=== PATIENT | female | born 1980 | race Caucasian/White ===

== ENCOUNTER 2020-10-04 17:46 | Emergency (ER) | payer OTHER, SELFPAY ==
[2020-10-04 17:54] VITALS: BP 136/78; PULSE 66; RESP 16; TEMP 36.7; O2SAT 100
--- NOTE | 2020-10-04 18:09 | ED.SKABFB ---
HPI - Skin/Abscess/Foreign Bdy General Chief complaint: Skin/Abscess/Foreign Body Stated complaint: INSECT BITE Time Seen by Provider: 10/04/20 18:10 Source: patient and RN notes reviewed Mode of arrival: ambulatory Limitations: no limitations History of Present Illness HPI narrative: 39-year-old female presents to the [facility] with complaints of a bug bite to the right upper inner arm since last night. States that her significant other do a prairie band around the red area when she joao to bed and not the redness and swelling has become worse. Also has increased warmth. Denies fevers. Full range of motion of the shoulder elbow and wrist without increased pain. Related Data Home Medications Medication Instructions Recorded Confirmed levothyroxine 10/04/20 Allergies Allergy/AdvReac Type Severity Reaction Status Date / Time Penicillins Allergy Unknown Other Verified 01/16/18 18:49 Review of Systems Review of Systems: All systems reviewed & are unremarkable except as noted in HPI and below Constitutional: Constitutional: Reports no additional constitutional complaints Eyes: Eyes: Reports no additional eye complaints ENT: Reports system reviewed and no additional complaints, except as documented Cardiovascular: Cardiovascular: Reports no additional cardiovascular complaints Respiratory: Respiratory: Reports no additional respiratory complaints Musculoskeletal: Musculoskeletal: Reports no additional musculoskeletal complaints Integumentary/Breasts: Skin/Breast: Reports as per HPI and Reports erythema (Right upper arm) Neurologic: Reports system reviewed and no additional complaints, except as documented Psychiatric: Psychiatric: Reports no additional psychiatric complaints Allergic/Immunologic: Allergic/Immunologic: Reports no additional allergic/immunologic complaints PMFSH Surgical History Surgical History H/O thyroidectomy Comments At the time of my signature, I reviewed and agree with the nursing past medical, surgical, social, and family history. There is no relevant family history pertinent to the patient complaint. Exam Const: General: healthy appearing, no acute distress and alert Nutritional Appearance: well nourished Orientation/consciousness: patient oriented x3 Limitations: no limitations HENMT: Head: normal to inspection Ears: external ears normal Eyes: Conjunctivae: conjunctivae normal Pupils: Equal, round and reactive pupils present Neck: Neck: normal visual inspection, no lymphadenopathy and no meningeal signs Chest: Chest palpation & inspection: normal inspection of the chest Resp: Effort & Inspection: normal respiratory effort Auscultation: clear to auscultation bilaterally Cardio: Rate: regular rate Rhythm: regular rhythm : General: Yes no CVA tenderness Back/Spine/Pelvis: Back: no CVA tenderness Skin: General skin exam: no ecchymosis, erythema, no fluctuance and no induration Lesions: no lesions Rashes: no rashes Trauma: no lacerations or abrasions Other: 6x5 cm red swollen warm area Neuro: General: patient oriented x3, moves all extremities, no meningeal signs and no focal motor deficits Speech: normal speech Gait exam (Neuro): Normal gait present Extrem: General: normal to inspection and no pedal edema Psych: Appearance: grossly normal and well kempt Mental Status: mental status grossly normal Affect: normal affect Attitude: cooperative Thought content: Yes Normal thought content present Course Course Emergency Course: Discharge instructions reviewed with patient, as well as provided in writing per nursing staff. The instructions also include specific and strict return/GO TO THE ER as well as f/u information. All questions have been answered, and the patient deny any further questions with discharge and discharge plan. Vital Signs Vital signs: Vital Signs Temperature 98.1 F 10/04/20 17:54 Pulse Rate
== END 2020-10-04 18:20 | disposition home or self-care (01) ==
PROVIDERS: Emergency Provider Nurse Practitioner; PCP Family Medicine Sports Medicine
DX: L03.113 Cellulitis of right upper limb (principal)
CPT/HCPCS: 99213; G0463

== ENCOUNTER 2021-03-12 15:59 | Outpatient (CLI) | payer OTHER, SELFPAY ==
--- NOTE | ~2021-03-12 | US_ITS ---
US OB <=14 wk fetus w TV DATE: 03/12/2021 17:35 INDICATION: First trimester vaginal spotting TECHNIQUE: Real-time imaging via transabdominal and transvaginal approaches COMPARISON: None FINDINGS: Uterus measures 8.4 centers height, 4.8 cm AP and 6.2 cm transverse dimension. Intrauterine normally shaped gestational sac with normal appearing surrounding decidual reaction is i dentified. Yolk sac but not pole is detected. The ovaries appear normal. No pelvic mass or abnormal pelvic fluid collection is detected. IMPRESSION: Early intrauterine gestational sac Reviewed, dictated and finalized at [facility]. Reviewed, dictated and finalized at location [facility]. NT OFFICER
== END 2021-03-12 16:00 | disposition home or self-care (01) ==
LOC: ANHIMG 16:09
PROVIDERS: PCP Family Medicine Sports Medicine; Visit Provider Obstetrics & Gynecology Gynecology
DX: O26.851 Spotting complicating pregnancy, first trimester (principal); Z3A.00 Weeks of gestation of pregnancy not specified
CPT/HCPCS: 76801; 76817

== ENCOUNTER 2021-03-12 18:29 | Outpatient (CLI) | payer OTHER, SELFPAY | END 2021-03-12 18:30 | disposition home or self-care (01) | LOC: ANHOBOP 18:31 | PROVIDERS: PCP Family Medicine Sports Medicine; Visit Provider Obstetrics & Gynecology Gynecology | DX: O20.0 Threatened abortion (principal); Z3A.00 Weeks of gestation of pregnancy not specified | CPT/HCPCS: 36415; 84702; 85461 ==

== ENCOUNTER 2021-03-19 15:22 | Outpatient (RCR) | payer OTHER, SELFPAY ==
[2021-03-16] MEDS: RHO(D) IMMUNE GLOBULIN 300 MCG/2 ML SYRINGE IM (18:17)
[2021-03-19 16:14] LABS: Beta HCG Quantitative 214.72 mIU/ML
== END 2021-06-14 23:59 | disposition home or self-care (01) ==
LOC: ANHLAB 15:22
PROVIDERS: PCP Family Medicine Sports Medicine; Visit Provider Obstetrics & Gynecology Gynecology
DX: Z29.13 Encounter for prophylactic Rho(D) immune globulin (principal); O36.0110 Maternal care for anti-D [Rh] antibodies, first trimester, not applicable or unspecified; O26.851 Spotting complicating pregnancy, first trimester; O02.1 Missed abortion; Z3A.00 Weeks of gestation of pregnancy not specified
CPT/HCPCS: 36415; 84702; 85461; 90384; 96372; J2790

== ENCOUNTER → 2021-09-06 14:41 | Outpatient (CLI) | payer OTHER, SELFPAY ==
--- NOTE | ~2021-09-06 | US_ITS ---
EXAMINATION: US OB transvaginal DATE: 09/06/2021 15:05 INDICATION: Uncertain dates. Spotting in first trimester. TECHNIQUE: Real-time transvaginal pelvic ultrasound was performed. COMPARISON: None. FINDINGS: The uterus measures 9.0 x 5.1 x 6.4 cm. There is a 1.3 cm intramural fibroid. There is an intrauterin e gestational sac. A yolk sac is identified. The crown rump length measures 0.4 cm, which [place] elates with an estimated gestational age of 6 weeks and 0 day(s) (+/-) 4 day(s). heart motion i s identified measuring 107 beats per minute (bpm) by M-mode Doppler. The ovaries are not visualized. There is no free fluid in the pelvis. IMPRESSION: 1. Single living intrauterine gestation with estimated date of delivery of 05/02/2022. 2. 1.3 cm intramural fibroid. Reviewed, dictated and finalized at location [facility]. IMPRESSION: 1. Single living intrauterine gestation with estimated date of delivery of 04/17. 2. 1.3 cm intramural fibroid.
== END ==
PROVIDERS: PCP Family Medicine Sports Medicine; Visit Provider Obstetrics & Gynecology Gynecology
DX: O26.21 Pregnancy care for patient with recurrent pregnancy loss, first trimester (principal); Z3A.00 Weeks of gestation of pregnancy not specified
CPT/HCPCS: 76817

== ENCOUNTER → 2021-10-02 15:10 | Outpatient (CLI) | payer OTHER, SELFPAY ==
--- NOTE | ~2021-10-02 | US_ITS ---
EXAMINATION: US OB <= 14 weeks fetus DATE: 10/02/2021 15:34 INDICATION: Recurrent . TECHNIQUE: Real-time transabdominal pelvic ultrasound was performed. COMPARISON: Ultrasound 09/06/2021 FINDINGS: The uterus measures 13.7 x 6.0 x 8.5 cm. There is an intrauterine gestational sac. A yolk sac is iden tified. The crown rump length measures 3.5 cm, which correlates with an estimated gestational age of 10 weeks and 2 day(s) (+/-) 6 day(s). heart motion is identified measuring 167 beats per minute (bpm) by M-mode Doppler. There is a small subchorionic hematoma measuring 1.7 x 1.9 x 0.9 cm. On the left, there is an intramural fibroid measuring 1.7 cm. The right ovary measures 2.6 x 1.3 x 1 .8 cm. The left ovary measures 3.1 x 1.9 x 2.5 cm. There is no free fluid in the pelvis. IMPRESSION: 1. Single living intrauterine gestation with estimated date of delivery of 05/02/2022 based on the ul trasound from 09/06/2021. 2. Small subchorionic hematoma. 3. 1.7 cm uterine fibroid. Reviewed, dictated and finalized at location [facility]. IMPRESSION: 1. Single living intrauterine gestation with estimated date of delivery of 04/17 based on the ultrasound from 09/06/2021. 2. Small subchorionic hematoma. 3. 1.7 cm uterine fibroid.
== END ==
PROVIDERS: PCP Family Medicine Sports Medicine; Visit Provider Obstetrics & Gynecology Gynecology
DX: O46.90 Antepartum hemorrhage, unspecified, unspecified trimester (principal); Z3A.00 Weeks of gestation of pregnancy not specified; D25.9 Leiomyoma of uterus, unspecified
CPT/HCPCS: 76801

== ENCOUNTER → 2021-10-26 14:39 | Outpatient (CLI) | payer OTHER, SELFPAY ==
--- NOTE | ~2021-10-26 | US_ITS ---
EXAMINATION: US OB limited DATE: 10/26/2021 15:00 INDICATION: Subchorionic hematoma during the second trimester of TECHNIQUE: Real-time ultrasound of the pelvis was performed. The interpreting radiologist was not pre sent for the study. COMPARISON: 10/02/2021 FINDINGS: There is a single living fetus in transverse lie. The placenta is anterior. Again seen is approximat zeina 2.2 cm hypoechoic fibroid in the left posterior wall of the uterus. No subchorionic hematoma. Fet al heart rate is 147 beats per minute (bpm). The amniotic fluid volume is subjectively normal. IMPRESSION: 1. Single living fetus with heart rate of 147 bpm. 2. Normal anterior placenta. No evident subchorionic hematoma. 3. 2.2 cm intramural fibroid in the posterior wall of the uterus. Reviewed, dictated and finalized at location A.
== END ==
PROVIDERS: PCP Family Medicine Sports Medicine; Visit Provider Obstetrics & Gynecology Gynecology
DX: O36.8920 Maternal care for other specified fetal problems, second trimester, not applicable or unspecified (principal); D25.9 Leiomyoma of uterus, unspecified; Z3A.00 Weeks of gestation of pregnancy not specified
CPT/HCPCS: 76815

== ENCOUNTER 2021-11-12 16:30 | Outpatient (CLI) | payer OTHER, SELFPAY ==
[2021-11-12 16:50] LABS: Hematocrit 37.1 % (37.0-47.0); Hemoglobin 12.9 g/dL (12.0-15.0); Mean Corpuscular HGB Conc 34.8 g/dl (32-36); Mean Corpuscular Volume 94.9 fl (80-100); Mean Platelet Volume 10.1 fl (7.4-10.4); Platelet Count Result 209 k/mm3 (150-375); Red Blood Count 3.91 M/mm3 (4.2-5.4)
[2021-11-12 17:05] LABS: Alanine Aminotransferase 22 U/L (6-35); Albumin Level 3.8 g/dL (3.5-5.1); Alkaline Phosphatase 39 U/L (38-126); Anion Gap 7 mmol/L (8-16); Aspartate Amino Transferase 18 U/L (14-36); Bilirubin,Total 0.3 mg/dL (0.2-1.3); Blood Urea Nitrogen 9 mg/dL (7-17); Calcium 8.4 mg/dL (8.4-10.2); Carbon Dioxide 24 mmol/L (22-30); Chloride 105 mmol/L (98-107); Estimated Glomerular Filt Rate > 60; Glucose 103 mg/dL (65-110); Potassium 4.1 mmol/L (3.4-5.0); Sodium 136 mmol/L (137-145)
== END 2021-11-12 16:31 | disposition home or self-care (01) ==
LOC: ANHLAB 16:32
PROVIDERS: PCP Family Medicine Sports Medicine; Visit Provider Obstetrics & Gynecology Gynecology
DX: Z87.59 Personal history of other complications of pregnancy, childbirth and the puerperium (principal)
CPT/HCPCS: 36415; 80053; 85027

== ENCOUNTER 2021-11-15 15:52 | Outpatient (CLI) | payer OTHER, SELFPAY ==
[2021-11-15 18:21] LABS: Total Volume 24 Hour Urine 3300 ml
[2021-11-15 18:23] LABS: Total Volume 24 Hour Urine 3300 ml
[2021-11-15 18:40] LABS: Creatinine 24 Hour Urine 1.2 gm/24 (0.8-1.8); Creatinine Urine 37.4 mg/dL; Total Protein Urine 24 Hr 264 mg/24hr (28-141); Total Protein Urine Random 8 mg/dL
== END 2021-11-15 15:53 | disposition home or self-care (01) ==
PROVIDERS: PCP Family Medicine Sports Medicine; Visit Provider Obstetrics & Gynecology Gynecology
DX: Z87.59 Personal history of other complications of pregnancy, childbirth and the puerperium (principal)
CPT/HCPCS: 81050; 82570; 84156

== ENCOUNTER 2021-12-24 16:30 | Outpatient (CLI) | payer OTHER, SELFPAY ==
[2021-12-31 08:15] LABS: AFP, Serum 141.2; Estriol, Free 2.53; hCG MoM 1.63; hCG, Serum 28.8
[2021-12-31 08:16] LABS: Cigarette Smoker No; Inhibin A, Dimeric 331; Maternal Weight 154; Number of Fetuses 1
[2022-01-04 16:00] LABS: IVFPREG? No
== END 2021-12-24 16:31 | disposition home or self-care (01) ==
LOC: ANHLAB 16:33
PROVIDERS: PCP Family Medicine Sports Medicine; Visit Provider Obstetrics & Gynecology Gynecology
DX: Z36.9 Encounter for antenatal screening, unspecified (principal); Z3A.00 Weeks of gestation of pregnancy not specified
CPT/HCPCS: 36415; 82105; 82677; 84702; 86336

== ENCOUNTER 2022-02-01 15:24 | Outpatient (CLI) | payer OTHER, SELFPAY ==
[2022-02-01 16:02] LABS: Hematocrit 36.9 % (37.0-47.0); Hemoglobin 12.9 g/dL (12.0-15.0); Mean Corpuscular Volume 94.4 fl (80-100); Platelet Count Result 236 k/mm3 (150-375); Red Blood Count 3.91 M/mm3 (4.2-5.4); Red Cell Distribution Width 12.1 % (11.5-14.5); White Blood Count 8.7 K/mm3 (4.5-10.0)
[2022-02-01 16:13] LABS: Alanine Aminotransferase 30 U/L (6-35); Albumin Level 3.5 g/dL (3.5-5.1); Alkaline Phosphatase 77 U/L (38-126); Anion Gap 4 mmol/L (8-16); Aspartate Amino Transferase 27 U/L (14-36); Bilirubin,Total 0.2 mg/dL (0.2-1.3); Blood Urea Nitrogen 9 mg/dL (7-17); Calcium 8.6 mg/dL (8.4-10.2); Carbon Dioxide 26 mmol/L (22-30); Chloride 103 mmol/L (98-107); Estimated Glomerular Filt Rate > 60; Glucose 81 mg/dL (65-110); Potassium 4.3 mmol/L (3.4-5.0); Sodium 133 mmol/L (137-145); Uric Acid 3.6 mg/dL (2.5-7.5)
[2022-02-04 16:03] LABS: Total Volume 24 Hour Urine 3600 ml
[2022-02-04 16:09] LABS: Total Protein Urine Random 14 mg/dL
[2022-02-04 16:19] LABS: Total Protein Urine 24 Hr 504 mg/24hr (28-141)
== END 2022-02-01 15:25 | disposition home or self-care (01) ==
LOC: ANHLAB 15:26
PROVIDERS: PCP Family Medicine Sports Medicine; Visit Provider Obstetrics & Gynecology Gynecology
DX: O13.2 Gestational [pregnancy-induced] hypertension without significant proteinuria, second trimester (principal); Z3A.00 Weeks of gestation of pregnancy not specified
CPT/HCPCS: 36415; 80053; 81050; 84156; 84550; 85027

== ENCOUNTER 2022-02-05 14:12 | Inpatient (IN) | payer OTHER, SELFPAY ==
[2022-02-05] VITALS (7 sets, daily range): BP systolic 126–148; BP diastolic 74–86; PULSE 56–67; RESP 18; TEMP 36.6–36.8; O2SAT 93–98; BMI 33.0
[2022-02-05] MEDS: BETAMETHASONE SOD PHOS/ACETATE 30 MG/5 ML VIAL 12 MG IM (15:01)
[2022-02-05 15:20] LABS: Basophils Percent Auto 0.3 % (0.2-1.2); Eosinophils Absolute Auto 0.1 K/mm3 (0-0.3); Hematocrit 35.8 % (37.0-47.0); Hemoglobin 12.5 g/dL (12.0-15.0); Immature Granulocyte Absolute 0.02 K/mm3 (0.00-0.031); Immature Granulocyte Percent A 0.3 % (0-0.5); Lymphocytes Absolute Auto 1.69 K/mm3 (0.9-3.2); Lymphocytes Percent Auto 24.9 % (18.3-44.2); Mean Corpuscular HGB Conc 34.9 g/dl (32-36); Mean Corpuscular Volume 94.5 fl (80-100); Mean Platelet Volume 10.9 fl (7.4-10.4); Monocytes Absolute Auto 0.5 K/mm3 (0.1-0.6); Monocytes Percent Auto 7.2 % (2.6-8.5); Neutrophils Absolute Auto 4.5 K/mm3 (1.3-6.7); Neutrophils Percent Auto 66.3 % (45.5-73.1); Platelet Count Result 227 k/mm3 (150-375); Red Blood Count 3.79 M/mm3 (4.2-5.4); White Blood Count 6.8 K/mm3 (4.5-10.0)
[2022-02-05 15:30] LABS: Alanine Aminotransferase 29 U/L (6-35); Albumin Level 3.6 g/dL (3.5-5.1); Alkaline Phosphatase 82 U/L (38-126); Anion Gap 7 mmol/L (8-16); Aspartate Amino Transferase 27 U/L (14-36); Bilirubin,Total < 0.1 mg/dL (0.2-1.3); Blood Urea Nitrogen 8 mg/dL (7-17); Calcium 8.7 mg/dL (8.4-10.2); Carbon Dioxide 21 mmol/L (22-30); Chloride 104 mmol/L (98-107); Estimated Glomerular Filt Rate > 60; Glucose 91 mg/dL (65-110); Potassium 3.8 mmol/L (3.4-5.0); Sodium 132 mmol/L (137-145); Uric Acid 3.9 mg/dL (2.5-7.5)
--- NOTE | 2022-02-05 15:30 | OBADM ---
This patient, Kelli Galdamez, admitted to the OB room OB Post 113 for observation. Patient/family oriented to hospital policies and general routines including ID bracelet, bed and alarms, visiting hours, pain management, procedures, bathroom and other care routines, personal items, smoking policy, room service/diet, and visiting hours. Patient/Family are encouraged to report perceived risks to care and to ask questions if they do not understand what they are told or what they should do.
--- NOTE | 2022-02-05 17:39 | PC.NURSE ---
Report given to Spencer Henderson
[2022-02-05 19:38] LABS: Hematocrit 36.6 % (37.0-47.0); Hemoglobin 12.7 g/dL (12.0-15.0); Mean Corpuscular HGB Conc 34.7 g/dl (32-36); Mean Corpuscular Hemoglobin 32.9 pg (26-34); Mean Corpuscular Volume 94.8 fl (80-100); Mean Platelet Volume 10.6 fl (7.4-10.4); Platelet Count Result 225 k/mm3 (150-375); Red Blood Count 3.86 M/mm3 (4.2-5.4); Red Cell Distribution Width 12.2 % (11.5-14.5); White Blood Count 8.7 K/mm3 (4.5-10.0)
[2022-02-05 19:58] LABS: Glucose 1 Hour PP 50gm Dose 222 mg/dL
[2022-02-05 20:30] LABS: Vitamin D 25 Hydroxy 52.3 ng/mL
[2022-02-05 20:37] LABS: HIV 1/2 Ab P24 Ag Result Negative (Negative)
[2022-02-06] VITALS (9 sets, daily range): BP systolic 123–143; BP diastolic 68–80; PULSE 57–66; RESP 14–18; TEMP 36.6–36.9; O2SAT 95
[2022-02-06 06:32] LABS: Glucose Point of Care 127 mg/dl (65-105)
--- NOTE | 2022-02-06 08:10 | PM.OBPNVD ---
OB - PN: Subj Subjective Date/time seen: 02/06/22 0735 Interval history: Kelli reports not sleeping well last night but otherwise has no complaints. Patient comments: no complaints OB - PN: Obj Data Labs 02/05/22 19:27 02/05/22 15:13 Labs: Laboratory Results - last 24 hr 02/05/22 02/05/22 02/05/22 15:13 15:13 15:13 WBC 6.8 RBC 3.79 L Hgb 12.5 Hct 35.8 L MCV 94.5 MCH 33.0 MCHC 34.9 RDW 12.0 Plt Count 227 MPV 10.9 H Immature Gran % (Auto) 0.3 Neut % (Auto) 66.3 Lymph % (Auto) 24.9 [place] % (Auto) 7.2 Eos % (Auto) 1.0 Baso % (Auto) 0.3 Lymph # (Auto) 1.69 [place] # (Auto) 0.5 Eos # (Auto) 0.1 Baso # (Auto) 0.0 Abs Immat Gran (auto) 0.02 Absolute Neuts (auto) 4.5 Absolute Nucleated RBC 0.0 Nucleated RBC % 0.0 Sodium 132 L Potassium 3.8 Chloride 104 Carbon Dioxide 21 L Anion Gap 7 L BUN 8 Creatinine 0.50 L Estim Creat Clear Calc Not Reportable Estimated GFR > 60 Glucose 91 POC Capillary Glucose Glucose 1 Hr 50 gm Uric Acid Cancelled 3.9 Calcium 8.7 Total Bilirubin < 0.1 L AST 27 ALT 29 Alkaline Phosphatase 82 Total Protein 7.0 Albumin 3.6 Vitamin D 25-Hydroxy HIV 1&2 Ab/P24 Ag 4thGn Blood Type Antibody Screen Screen Baby's Blood Type Baby's SOBEIDA Doses of RhIg Required 02/05/22 02/05/22 02/05/22 19:27 19:27 19:27 WBC 8.7 RBC 3.86 L Hgb 12.7 Hct 36.6 L MCV 94.8 MCH 32.9 MCHC 34.7 RDW 12.2 Plt Count 225 MPV 10.6 H Immature Gran % (Auto) Neut % (Auto) Lymph % (Auto) [place] % (Auto) Eos % (Auto) Baso % (Auto) Lymph # (Auto) [place] # (Auto) Eos # (Auto) Baso # (Auto) Abs Immat Gran (auto) Absolute Neuts (auto) Absolute Nucleated RBC Nucleated RBC % Sodium Potassium Chloride Carbon Dioxide Anion Gap BUN Creatinine Estim Creat Clear Calc Estimated GFR Glucose POC Capillary Glucose Glucose 1 Hr 50 gm Uric Acid Calcium Total Bilirubin AST ALT Alkaline Phosphatase Total Protein Albumin Vitamin D 25-Hydroxy 52.3 HIV 1&2 Ab/P24 Ag 4thGn Negative Blood Type Antibody Screen Screen Baby's Blood Type Baby's SOBEIDA Doses of RhIg Required 02/05/22 02/05/22 02/06/22 19:27 19:27 06:25 WBC RBC Hgb Hct MCV MCH MCHC RDW Plt Count MPV Immature Gran % (Auto) Neut % (Auto) Lymph % (Auto) [place] % (Auto) Eos % (Auto) Baso % (Auto) Lymph # (Auto) [place] # (Auto) Eos # (Auto) Baso # (Auto) Abs Immat Gran (auto) Absolute Neuts (auto) Absolute Nucleated RBC Nucleated RBC % Sodium Potassium Chloride Carbon Dioxide Anion Gap BUN Creatinine Estim Creat Clear Calc Estimated GFR Glucose POC Capillary Glucose 127 H Glucose 1 Hr 50 gm 222 H Uric Acid Calcium Total Bilirubin AST ALT Alkaline Phosphatase Total Protein Albumin Vitamin D 25-Hydroxy HIV 1&2 Ab/P24 Ag 4thGn Blood Type A Negative Antibody Screen Negative Screen Negative Baby's Blood Type Not Reportable Baby's SOBEIDA Not Reportable Doses of RhIg Required 1 OB - PN A/P Assessment and Plan (1) Preeclampsia: Code(s): O14.90 - Unspecified pre-eclampsia, unspecified trimester Status: Acute (2) History of pre-eclampsia in prior , currently : Code(s): O09.299 - Supervision of with other poor reproductive or obstetric history, unspecified trimester Status: Acute (3) History of IUFD: Code(s): Z87.59 - Personal history of other complications of , childbirth and the puerperium Status: Acute (4) Rh negative status during : Code(s
--- NOTE | 2022-02-06 10:00 | PC.NURSE ---
Izaiah Teran CNM upated on pt. Orders for NST at [id number]-[id number]. Blood sugar per D-Stick reported.
[2022-02-06 10:26] LABS: Glucose Point of Care 195 mg/dl (65-105)
[2022-02-06 12:41] LABS: Free T4 Free Thyroxine 0.96 ng/mL (0.78-2.19)
[2022-02-06] MEDS: LEVOTHYROXINE SODIUM 100 MCG TABLET PO (13:38)
[2022-02-06] MEDS: RHO(D) IMMUNE GLOBULIN 300 MCG/2 ML SYRINGE IM (15:00)
[2022-02-06] MEDS: BETAMETHASONE SOD PHOS/ACETATE 30 MG/5 ML VIAL 12 MG IM (15:06)
[2022-02-06 15:12] LABS: Glucose Point of Care 196 mg/dl (65-105)
[2022-02-06 20:22] LABS: Glucose Point of Care 216 mg/dl (65-105)
[2022-02-07] VITALS (13 sets, daily range): BP systolic 125–141; BP diastolic 61–73; PULSE 59–70; RESP 16; TEMP 36.6–36.7; O2SAT 95–98; BMI 33.0
[2022-02-07 05:49] LABS: Glucose Point of Care 149 mg/dl (65-105)
[2022-02-07] MEDS: LEVOTHYROXINE SODIUM 100 MCG TABLET PO (07:36)
--- NOTE | 2022-02-07 07:37 | PM.OBPNVD ---
OB - PN: Subj Subjective Date/time seen: 02/07/22 07:37 Interval history: Kelli reports not sleeping well last night but otherwise has no complaints. Patient comments: no complaints and other (No PIH sx. Good FM) OB - PN: Obj Data Labs 02/05/22 19:27 02/05/22 15:13 Labs: Laboratory Results - last 24 hr 02/05/22 02/05/22 02/05/22 15:12 19:23 19:27 POC Capillary Glucose TSH 3.850 Free T4 0.96 Blood Type A Negative Antibody Screen Negative Screen Negative Doses of RhIg Required 1 02/06/22 02/06/22 02/06/22 09:43 15:05 20:18 POC Capillary Glucose 195 H 196 H 216 H TSH Free T4 Blood Type Antibody Screen Screen Doses of RhIg Required 02/07/22 05:44 POC Capillary Glucose 149 H TSH Free T4 Blood Type Antibody Screen Screen Doses of RhIg Required OB - PN A/P Assessment and Plan (1) Preeclampsia: Code(s): O14.90 - Unspecified pre-eclampsia, unspecified trimester Status: Acute Assessment and Plan: DC home on modified bedrest with close monitoring. BP at home and weekly visits. (2) History of IUFD: Code(s): Z87.59 - Personal history of other complications of , childbirth and the puerperium Status: Acute Assessment and Plan: NST Mon/Fri with SAIMA, Dopplers, BPP. Growth scan today with [facility]. (3) Gestational diabetes mellitus (GDM): Code(s): O24.419 - Gestational diabetes mellitus in , unspecified control Status: Acute Assessment and Plan: Likely elevated with steroids but will check accuchecks at home. Time Spent With Patient Time: Total time spent is greater than 50% in coordination of care (as documented) at patient's floor/unit and/or counseling patient: Exam Narrative: abdomen soft, nt NST Cat I
--- NOTE | 2022-02-07 07:40 | PM.DS ---
DS: Admitting Diagnosis Discharge Date 02/07/22 Admitting Diagnosis IUP 29 4/7 wks preeclampsia DS: Discharge Diagnosis Discharge Diagnosis (1) 29 weeks gestation of : Code(s): Z3A.29 - 29 weeks gestation of Status: Acute (2) Preeclampsia: Code(s): O14.90 - Unspecified pre-eclampsia, unspecified trimester Status: Acute (3) History of IUFD: Code(s): Z87.59 - Personal history of other complications of , childbirth and the puerperium Status: Acute (4) Gestational diabetes mellitus (GDM): Code(s): O24.419 - Gestational diabetes mellitus in , unspecified control Status: Acute Assessment and Plan: vs steroid effect DS: Summary Hospital Course Hospital Course: The patient was admitted secondary to [facility] recommendation to rule out severe features of her preeclampsia. She has been observed for 48hours with mild range blood pressures, normal labs, and good heart rate tracings. Patient is without preeclamptic symptoms. In addition the patient did her 3rd trimester labs of [id number] after her steroid dose and her 1hour glucose was 220. She will monitor sugars for the next couple weeks to see the steroids were the only cause or if she truly has gestational diabetes. Status at Discharge Functional status at discharge: independent ambulation Overall status at discharge: patient is back to baseline Time Spent with Patient Time attestation: Total time spent providing and/or coordinating discharge services: DS: Data Data Completed and Pending Labs on day of discharge: Labs from last 24 hours 02/07/22 02/06/22 02/06/22 05:44 20:18 15:05 POC Capillary Glucose 149 H 216 H 196 H TSH Free T4 Blood Type Antibody Screen Screen Doses of RhIg Required 02/06/22 02/05/22 02/05/22 09:43 19:27 19:23 POC Capillary Glucose 195 H TSH Free T4 0.96 Blood Type A Negative Antibody Screen Negative Screen Negative Doses of RhIg Required 1 02/05/22 15:12 POC Capillary Glucose TSH 3.850 Free T4 Blood Type Antibody Screen Screen Doses of RhIg Required Discharge Plan Discharge Attending physician on discharge: Emma Galaviz Discharging Clinician: Emma Galaviz Anticipated Discharge Date/Time: 02/07/22 07:43 Patient Disposition: Home, Self-Care Activity: may shower, pelvic rest and other - see discharge instructions Diet: gestational diabetic Patient Instructions: Antibiotic Form Stand Alone Forms: General Discharge Information Follow-up/Referrals: Emma Galaviz MD [Physician] - Keep Reg. Scheduled Appt. Discharge Medications: Continued levothyroxine 88 mcg tablet 100 mcg PO DAILY Rx Instructions: Only take 50 mcg on Sundays Classic 28 mg iron- 800 mcg Tablet 1 tablet PO DAILY Alive Calcium-Vitamin D3 260 mg calcium- 25 mcg-50 mg Tablet,Chewable 1 tablet PO DAILY Adult Low Dose Aspirin 81 mg Tablet 162 mg PO DAILY Date of admission: 02/05/22 14:12 Primary Care Provider: Doni,María Bliss Admitting Provider: Emma Galaviz Attending physician on admission: Emma Galaviz Condition: Stable
--- NOTE | 2022-02-07 10:43 | PC.NURSE ---
Pt waiting for to come get her for MFM appointment.
[2022-02-07 11:26] LABS: Glucose Point of Care 130 mg/dl (65-105)
== END 2022-02-07 11:42 | disposition home or self-care (01) | DRG 832 ==
PROVIDERS: Advanced Practice Midwife; Admitting Provider Obstetrics & Gynecology Gynecology; PCP Family Medicine Sports Medicine; Visit Provider Obstetrics & Gynecology Gynecology
DX: O24.419 Gestational diabetes mellitus in pregnancy, unspecified control (principal); O14.03 Mild to moderate pre-eclampsia, third trimester; Z3A.29 29 weeks gestation of pregnancy; Z67.91 Unspecified blood type, Rh negative; E05.00 Thyrotoxicosis with diffuse goiter without thyrotoxic crisis or storm; O09.523 Supervision of elderly multigravida, third trimester; O34.03 Maternal care for unspecified congenital malformation of uterus, third trimester; Q51.810 Arcuate uterus; Z90.89 Acquired absence of other organs; T38.0X5A Adverse effect of glucocorticoids and synthetic analogues, initial encounter
CPT/HCPCS: 36415; 59025; 80053; 82306; 82947; 82948; 84439; 84443; 84550; 85025; 85027; 85461; 86703; 86850; 86900; 86901; 90384; A9270; G0432; J0702; J2790

== ENCOUNTER 2022-02-09 14:02 | Outpatient (RCR) | payer OTHER, SELFPAY ==
[2022-02-09 14:38] VITALS: BP 141/85; PULSE 54
== END 2022-03-22 12:48 | disposition home or self-care (01) ==
LOC: ANHOBOP 14:02
PROVIDERS: PCP Family Medicine Sports Medicine; Visit Provider Obstetrics & Gynecology Gynecology
DX: O14.93 Unspecified pre-eclampsia, third trimester (principal); Z3A.28 28 weeks gestation of pregnancy
CPT/HCPCS: 59025

== ENCOUNTER 2022-02-11 04:13 | Observation (INO) | payer OTHER, SELFPAY ==
[2022-02-11] VITALS (59 sets, daily range): BP systolic 80–176; BP diastolic 42–92; PULSE 52–86; O2SAT 89–100; BMI 32.3
[2022-02-11] MEDS: NIFEdipine 10 MG CAPSULE PO (04:29)
[2022-02-11] MEDS: MAGNESIUM SULF 20GM/WATER500ML 500 ML 50 MG IV CONT (04:39)
[2022-02-11] MEDS: MAGNESIUM SULF 6 GM/WATER150ML 6 GM/150 ML BAG IVPB (04:39)
[2022-02-11] MEDS: LACTATED RINGERS 1,000 ML 50 ML (04:39)
[2022-02-11 04:51] LABS: Add Urine Microscopic? YES; Appearance Urine Clear (Clear); Bilirubin Urine Negative (Negative); Blood Urine Negative (Negative); Color Urine Light Yellow (Yellow); Glucose Urine UA Negative (Negative); Ketones Urine Negative (Negative); Leukocyte Esterase Ur Negative LEU/UL (NEGATIVE); Nitrate Urine Negative (Negative); Protein Urine Trace mg/dL (Negative); Urobilinogen Urine 0.2 mg/dL (<2.0); pH Urine 6.5 (5.0-9.0)
[2022-02-11 04:53] LABS: Creatinine Urine 18.9 mg/dL; Total Protein Urine Random 46 mg/dL; Ur Ttl Prot Creatinine Ratio 2.43 mg/mg (0-0.20)
[2022-02-11 04:56] LABS: Bacteria Urine Trace /hpf; RBC Urine 0-2 /hpf (0-2); Squamous Epithelial Cell Urine Few /hpf (Few); WBC Urine 0-3 /hpf (0-3)
[2022-02-11 05:00] LABS: Alanine Aminotransferase 38 U/L (6-35); Albumin Level 3.2 g/dL (3.5-5.1); Alkaline Phosphatase 79 U/L (38-126); Anion Gap 6 mmol/L (8-16); Aspartate Amino Transferase 28 U/L (14-36); Bilirubin,Total 0.2 mg/dL (0.2-1.3); Blood Urea Nitrogen 12 mg/dL (7-17); Calcium 8.2 mg/dL (8.4-10.2); Carbon Dioxide 19 mmol/L (22-30); Chloride 110 mmol/L (98-107); Estimated CRCL calculation 97 ml/min; Estimated Glomerular Filt Rate > 60; Glucose 90 mg/dL (65-110); Potassium 3.9 mmol/L (3.4-5.0); Sodium 135 mmol/L (137-145); Uric Acid 4.1 mg/dL (2.5-7.5)
--- NOTE | 2022-02-11 05:29 | PM.IMHP ---
H&P: HPI History of Present Illness Date/Time: 02/11/22 05:29 Chief Complaint: Elevated blood pressures Narrative: Kelli is a 41yo @ 28.3wks (ARIANNA 05/03/[birth year]) who presented to L&D for elevated blood pressures. She had severe range BPs at home (SBPs of 160-170s), (she is normally awake as she works nights). On arrival to L&D, she was found to have severe ranges >15 minutes apart requiring PO Procardia until IV access could be established. She was then started on magnesium sulfate for seizure ppx. She denies any symptoms of BAPTISTE, vision changes, RUQ pain, CP or SOB. She was recently admitted for BP monitoring and 24 hour urine protein on 02/06-02/07 which showed mild range BPs and 24 hour urine of >500. She has already established care with [facility]. She reports good movement currently. No VB, LOF, or contractions. 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, on levothyroxine - Obesity Review of Systems Constitutional: Constitutional: Denies chills and Denies fever(s) Eyes: Eyes: Denies change in vision Cardiovascular: Cardiovascular: Denies chest pain Respiratory: Respiratory: Denies cough and Denies dyspnea Gastrointestinal: Gastrointestinal: Denies abdominal pain Genitourinary: Genitourinary: Denies pelvic pain Neurologic: Denies headache(s) [facility] Surgical History Surgical History H/O thyroidectomy Meds Home Medications and Allergies Home Medications Medication Instructions Recorded Confirmed Type levothyroxine 88 mcg tablet 100 mcg PO DAILY 10/04/20 02/11/22 History aspirin 81 mg tablet 162 mg PO DAILY 02/05/22 02/11/22 History calcium phos,tribasic 260 mg-D3 25 1 tablet PO DAILY 02/05/22 02/11/22 History mcg-herbal 50 mg chewable tablet (Alive Calcium-Vitamin D3) vits no.126-ferrous fum 1 tablet PO DAILY 02/05/22 02/11/22 History 28 mg iron-folic acid 800 mcg tablet (Classic ) Allergies Allergy/AdvReac Type Severity Reaction Status Date / Time Penicillins Allergy Unknown Other Verified 02/05/22 15:05 adhesive AdvReac Rash Verified 02/05/22 15:06 Vital Signs Vital Signs - 24 hr 02/11/22 03:58 02/11/22 04:02 02/11/22 04:20 Pulse Rate 53 L 52 L 59 L Blood Pressure 175/83 H 168/91 H 176/92 H Pulse Oximetry 02/11/22 04:38 02/11/22 04:45 02/11/22 04:49 Pulse Rate 53 L 74 Blood Pressure 167/84 H 121/74 Pulse Oximetry 96 02/11/22 04:54 02/11/22 04:59 02/11/22 05:00 Pulse Rate 57 L Blood Pressure 80/42 L Pulse Oximetry 96 99 02/11/22 05:04 02/11/22 05:09 02/11/22 05:10 Pulse Rate 77 Blood Pressure 117/65 Pulse Oximetry 95 97 02/11/22 05:15 02/11/22 05:20 02/11/22 05:25 Pulse Rate Blood Pressure Pulse Oximetry 93 95 92 Exam Const: General: cooperative and ill appearing Resp: Effort & Inspection: normal respiratory effort Auscultation: clear to auscultation bilaterally Cardio: Rate: regular rate GI: Inspection: normal to inspection GI Palp: No abdominal tenderness and Yes Soft to palpation Auscultation: normal bowel sounds : Other: FHT's: 140's/ mod sulema/ + accels/ no decels - cat 1 TOCO: no ctx's No VB or LOF Skin: General skin exam: normal color Neuro: General: patient oriented x3 Extrem: General: normal to inspection Psych: Appearance: grossly normal Affect: normal affect Attitude: cooperative H&P: Results Labs Labs: [facility] 02/11/22 04:35 Sodium 135 L Potassium 3.9 Chloride 110 H Carbon Dioxide 19 L BUN 12 Creatinine 0.60 L Glucose 90 Calcium 8.2 L Liver Function 02/11/22 Range/Units 04:35 Total Bilirubin 0.2 (0.2-1.3) mg/dL AST 28 (14-36) U/L ALT 38 H (6-
--- NOTE | 2022-02-11 05:48 | OBADM ---
This patient, Kelli Galdamez, admitted to the OB room OB Post 117 for observation. Patient/family oriented to hospital policies and general routines including ID bracelet, bed and alarms, visiting hours, pain management, procedures, bathroom and other care routines, personal items, smoking policy, room service/diet, and visiting hours. Patient/Family are encouraged to report perceived risks to care and to ask questions if they do not understand what they are told or what they should do.
[2022-02-11 06:02] LABS: Basophils Percent Auto 0.3 % (0.2-1.2); Eosinophils Absolute Auto 0.1 K/mm3 (0-0.3); Eosinophils Percent Auto 0.4 % (0-4.4); Hematocrit 36.1 % (37.0-47.0); Hemoglobin 12.7 g/dL (12.0-15.0); Immature Granulocyte Absolute 0.06 K/mm3 (0.00-0.031); Immature Granulocyte Percent A 0.4 % (0-0.5); Lymphocytes Absolute Auto 3.15 K/mm3 (0.9-3.2); Lymphocytes Percent Auto 23.6 % (18.3-44.2); Mean Corpuscular HGB Conc 35.2 g/dl (32-36); Mean Corpuscular Hemoglobin 32.9 pg (26-34); Mean Corpuscular Volume 93.5 fl (80-100); Mean Platelet Volume 11.4 fl (7.4-10.4); Monocytes Percent Auto 7.4 % (2.6-8.5); Neutrophils Absolute Auto 9.1 K/mm3 (1.3-6.7); Neutrophils Percent Auto 67.9 % (45.5-73.1); Platelet Count Result 214 k/mm3 (150-375); Red Blood Count 3.86 M/mm3 (4.2-5.4); Red Cell Distribution Width 12.1 % (11.5-14.5); White Blood Count 13.4 K/mm3 (4.5-10.0)
--- NOTE | 2022-02-11 06:36 | WPDHPUPDATE1 ---
History and Physical Update Update Date/Time: 02/11/22 06:36 History and Physical has been reviewed, including an updated exam of the patient. There are NO changes in the patient's condition. Risks, benefits, and alternatives have been discussed and questions answered. Patient agrees to proceed with procedure.
--- NOTE | 2022-02-11 08:17 | PC.NURSE ---
07[address] Ma[address] MULLIGAN [facility] transport team here and assumed care of this patient.
--- NOTE | 2022-02-14 10:10 | PM.OBTRLD ---
OB - Triage/Final Diagnosis Visit Information Comments/Additional reasons for admission: I have assessed the risk for this patient, Kelli Galdamez, and determined that she would benefit from observation care. Evaluation Laboratory results: Laboratory Tests 02/11/22 02/11/22 02/11/22 04:35 04:37 04:37 WBC RBC Hgb Hct MCV MCH MCHC RDW Plt Count MPV Immature Gran % (Auto) Neut % (Auto) Lymph % (Auto) [place] % (Auto) Eos % (Auto) Baso % (Auto) Lymph # (Auto) [place] # (Auto) Eos # (Auto) Baso # (Auto) Abs Immat Gran (auto) Absolute Neuts (auto) Absolute Nucleated RBC Nucleated RBC % Sodium 135 L Potassium 3.9 Chloride 110 H Carbon Dioxide 19 L Anion Gap 6 L BUN 12 Creatinine 0.60 L Estim Creat Clear Calc 97 Estimated GFR > 60 Glucose 90 Uric Acid 4.1 Calcium 8.2 L Total Bilirubin 0.2 AST 28 ALT 38 H Alkaline Phosphatase 79 Total Protein 6.0 L Albumin 3.2 L Urine Color Light yellow Urine Appearance Clear Urine pH 6.5 Ur Specific [place] 1.010 Urine Protein Trace Urine Glucose (UA) Negative Urine Ketones Negative Ur Blood (Man) Negative Urine Nitrate Negative Urine Bilirubin Negative Urine Urobilinogen 0.2 Ur Leukocyte Esterase Negative Urine RBC 0-2 Urine WBC 0-3 Ur Squamous Epith Cells Few Urine Bacteria Trace U Random Total Protein 46 Urine Creatinine 18.9 Protein/Creat Ratio 2 2.43 H 02/11/22 05:24 WBC 13.4 H RBC 3.86 L Hgb 12.7 Hct 36.1 L MCV 93.5 MCH 32.9 MCHC 35.2 RDW 12.1 Plt Count 214 MPV 11.4 H Immature Gran % (Auto) 0.4 Neut % (Auto) 67.9 Lymph % (Auto) 23.6 [place] % (Auto) 7.4 Eos % (Auto) 0.4 Baso % (Auto) 0.3 Lymph # (Auto) 3.15 [place] # (Auto) 1.0 H Eos # (Auto) 0.1 Baso # (Auto) 0.0 Abs Immat Gran (auto) 0.06 H Absolute Neuts (auto) 9.1 H Absolute Nucleated RBC 0.0 Nucleated RBC % 0.0 Sodium Potassium Chloride Carbon Dioxide Anion Gap BUN Creatinine Estim Creat Clear Calc Estimated GFR Glucose Uric Acid Calcium Total Bilirubin AST ALT Alkaline Phosphatase Total Protein Albumin Urine Color Urine Appearance Urine pH Ur Specific [place] Urine Protein Urine Glucose (UA) Urine Ketones Ur Blood (Man) Urine Nitrate Urine Bilirubin Urine Urobilinogen Ur Leukocyte Esterase Urine RBC Urine WBC Ur Squamous Epith Cells Urine Bacteria U Random Total Protein Urine Creatinine Protein/Creat Ratio 2 Final Diagnosis (1) Preeclampsia: Qualifiers: Trimester: third trimester Qualified Code(s): O14.93 - Unspecified pre-eclampsia, third trimester Code(s): O14.90 - Unspecified pre-eclampsia, unspecified trimester Status: Acute (2) History of IUFD: Code(s): Z87.59 - Personal history of other complications of , childbirth and the puerperium Status: Acute (3) Rh negative status during : Qualifiers: Trimester: third trimester Qualified Code(s): O26.893 - Other specified related conditions, third trimester; Z67.91 - Unspecified blood type, Rh negative Code(s): O26.899 - Other specified related conditions, unspecified trimester; Z67.91 - Unspecified blood type, Rh negative Status: Acute (4) Graves disease: Code(s): E05.00 - Thyrotoxicosis with diffuse goiter without thyrotoxic crisis or storm Status: Acute (5) Advanced maternal age (AMA) in : Status: Acute (6) Gestational diabetes mellitus (GDM): Qualifiers: Gestational diabetes mellitus control: unspecified Trimester: third trimester Qualified Code(s): O24.419 - Gestational diabetes mellitus in , unspecified control Code(s): O24.419 - Gestational diabetes mellitus in , unspecified control Status: Acute
== END 2022-02-11 08:17 | disposition short-term general hospital (02) ==
LOC: ANHOBOP 05:02 → ANHOBPP 08:26
PROVIDERS: Admitting Provider Obstetrics & Gynecology; PCP Family Medicine Sports Medicine; Visit Provider Obstetrics & Gynecology
DX: O14.93 Unspecified pre-eclampsia, third trimester (principal); Z87.59 Personal history of other complications of pregnancy, childbirth and the puerperium; O36.0930 Maternal care for other rhesus isoimmunization, third trimester, not applicable or unspecified; O24.419 Gestational diabetes mellitus in pregnancy, unspecified control; O09.523 Supervision of elderly multigravida, third trimester; O26.899 Other specified pregnancy related conditions, unspecified trimester; E05.00 Thyrotoxicosis with diffuse goiter without thyrotoxic crisis or storm; Z3A.28 28 weeks gestation of pregnancy; Z79.82 Long term (current) use of aspirin; Z79.899 Other long term (current) drug therapy
CPT/HCPCS: 36415; 80053; 81001; 82570; 84156; 84550; 85025; 87086; 87088; 96365; 96366; 99199; A9270; G0378; G0379; J3475; J7120